=== PATIENT | female | born 2000 | race Caucasian/White ===

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

== ENCOUNTER 2021-04-05 10:49 | Emergency (ER) | payer BC, SELFPAY ==
[2021-04-05] VITALS (15 sets, daily range): BP systolic 116–140; BP diastolic 69–94; PULSE 67–99; RESP 14–24; TEMP 36.6; O2SAT 99–100
--- NOTE | 2021-04-05 11:06 | W.ED.GENAD ---
Discharge Plan Disposition Patient Disposition: HOME Condition: Stable Discharge Details Clinical Impression: Pruritus Primary Care Provider: Rashawn Arvizu ED Provider: Tariq Barrientos Home Meds and New Rx's Prescriptions: New prednisone 20 mg tablet 60 mg PO DAILY 4 Days Qty: 12 RF: 0 Continued sumatriptan succinate [Imitrex] 50 mg tablet 50 mg PO ONCE MDD 200mg Qty: 30 RF: 1 ketotifen fumarate [Allergy Eye (ketotifen)] 0.025 % (0.035 %) drops 1 drp ophthalmic (eye) BID RF: 0 azelastine 137 mcg (0.1 %) aerosol,spray 1 spray intranasal BID PRNRF: 0 ondansetron 4 mg tablet,disintegrating 4 mg PO Q8H PRN (Reason: nausea and vomiting) Qty: 20 RF: 1 budesonide [Rhinocort Aqua] 8.6 GM spray,non-aerosol 1 spray NS DAILY Qty: 8.6 RF: 1 ibuprofen 600 MG tablet 600 mg PO Q6H PRN Qty: 30 RF: 0 albuterol sulfate [ProAir HFA] 8.5 GM HFA aerosol inhaler 2 puff Inhalation ONCE Qty: 1 RF: 1 norgestimate-ethinyl estradiol 0.25-35 mg-mcg tablet 1 tab PO DAILY Qty: 28 RF: 5 cyclobenzaprine 5 mg tablet 5 mg PO ONCE PRN (Reason: muscle spasm) Qty: 10 RF: 0 norgestimate-ethinyl estradiol [Tri-Previfem (28)] 0.18/0.215/0.25 mg-35 mcg (28) tablet 1 tab PO DAILY Qty: 84 RF: 0 fexofenadine 180 mg tablet 90 mg PO BID RF: 0 Discharge Instructions Additional Instructions: Your exam was not consistent with a life threatening allergy response try taking benadryl as needed for itching not controlled with prednisone, follow dosing instructions on packaging if you develop difficulty breathing, diffuse rash, abdomen pain or vomit or feel more ill return to the emergency department Medical Decision Making 20 yo female comes in with chief complaint of itching of arms and legs. Just prior to arrival she was in a garden, did not feel any breaks in skin or bites but started to feel itching arms and legs. She noticed she had subjective dyspnea which improved en route by private car. No abdomen pain or vomit, no prior need for epi pen per the patient. She has no rashes on exam, normal speech and no evidence of respiratory distress with clear lung sounds on exam. She appears well systemically, given no gi symptoms, normal exam and no rash doubt anaphylaxis, suspect local irriation from a pollen, will treat with prednisone and benadryl and reassess. vitals stable, still clear lungs, no rashes or gi symptoms and feels better. Doubt anaphylaxis, will start on course of prednisone and prn benadryl and discussed return precautions to return to the ED Differential Diagnosis Differential Diagnosis: allergies, pruritus HPI General Mode of arrival: ambulatory. Date/Time Provider Initiated Documentation: 04/05/21 10:53. Limitations to Documentation: no limitations. Information obtained by: patient. History of Present Illness 20 year old F presents to the emergency department with the chief complaint of itching legs and arms, described as moderate, Patient started experiencing this hour(s) (1) and it has been other (improving). No relieving factors improve symptom(s), No exacerbating factors reported . Patient did receive the following treatments prior to arrival, none Related Data Home Medications Medication Instructions Recorded Confirmed budesonide [Rhinocort Aqua] 1 spray NS DAILY #8.6 gm 10/18/15 04/05/21 ibuprofen 600 mg PO Q6H PRN #30 tab-cap 04/16/17 12/30/20 albuterol sulfate [ProAir HFA] 2 puff INHALATION ONCE #1 inhaler 06/16/18 04/05/21 fexofenadine 90 mg PO BID 04/10/20 04/05/21 norgestimate 0.25 mg-ethinyl 1 tab PO DAILY #28 tab 07/20/20 04/05/21 estradiol 35 mcg tablet azelastine 137 mcg (0.1 %) nasal 1 spray INTRANASAL BID PRN 08/25/20 04/05/21 spray aerosol ketotifen fumarate 0.025 % (0.035 1 drp OPHTHALMIC (EYE) BID 08/25/20 04/05/21 %) eye drops ondansetron 4 mg disintegrating 4 mg PO Q8H PRN #20 tab 10/12/20 04/05/21 tablet sumatriptan succinate 50 mg tablet 50 mg PO ONCE #30 tab MDD 200mg 12/30/20 04/05/21 cyclobenzaprine 5 mg tablet 5 mg PO ONCE PRN #10 tab 01/30/21 04/05/21 norgestimate-ethinyl estradiol 1 tab PO DAILY #84 tab 03/17/21 0.18 mg/0.215mg/0.25mg-35 mcg(28)tablet prednisone 60 mg PO DAILY 4 Days #12 tab 04/05/21 Previous Rx's Medication Instructions Recorded albuterol sulfate [ProAir HFA] 2 puff INHALATION ONCE #1 inhaler 06/16/18 norgestimate 0.25 mg-ethinyl 1 tab PO DAILY #28 tab 07/20/20 estradiol 35 mcg tablet ondansetron 4 mg disintegrating 4 mg PO Q8H PRN #20 tab 10/12/20 tablet sumatriptan succinate 50 mg tablet 50 mg PO ONCE #30 tab MDD 200mg 12/30/20 cyclobenzaprine 5 mg tablet 5 mg PO ONCE PRN #10 tab 01/30/21 norgestimate-ethinyl estradiol 1 tab PO DAILY #84 tab 03/17/21 0.18 mg/0.215mg/0.25mg-35 mcg(28)tablet prednisone 60 mg PO DAILY 4 Days #12 tab 04/05/21 Allergies Allergy/AdvReac Type Severity Reaction Status Date / Time codeine AdvReac Unknown vomiting Verified 04/05/21 11:01 SEASONAL ALLERGIES Allergy Intermediate Uncoded 04/05/21 11:01 General Stated Complaint: Allergic FORTINO: 3 Review of Systems All systems reviewed & are unremarkable except as noted in HPI and below Constitutional Constitutional: Denies chills, Denies fever(s) and Denies weakness Cardiovascular Cardiovascular: Denies chest pain Respiratory Respiratory: Denies cough Gastrointestinal Gastrointestinal: Denies abdominal pain, Denies nausea and Denies vomiting Neurologic Neurologic: Denies weakness [facility] Medical History (Updated 04/05/21 @ 11:55 by Tariq Barrientos MD) Allergic rhinitis severe- environmental Asthma Chronic nonintractable headache (09/05/12) Generalized abdominal pain (11/17/12) Headache (09/05/12) Routine child health exam (01/28/12) Surgical History S/P right knee arthroscopy [facility] [place] 11/22 removed scar tissue, 'fluid sac Tonsillectomy and adenoidectomy age 6 Family History Mother Urticaria Environmental allergies Asthma Father Urticaria Alcohol abuse Essential hypertension Bipolar disorder with borderline personality disorder Mental disorder depression/anxiety Other Urticaria paternal aunts/uncles, PGF Alcohol abuse paternal aunts/uncles, PGF Personal history of malignant neoplasm PGF-melanoma Bipolar disorder MGM, PGM Heart disease PGM Mental disorder PGM- anxiety/depression Social History Smoking/Tobacco Use Status: Never Smoking risk assessment performed?: Yes Alcohol Intake: never Drug use: Never Substance use type: does not use Household members: family Pets and animals: Yes Pets and animals: cat(s) Do you feel safe at home: Yes Do you feel safe in your relationship?: Yes Exam Const General: no acute distress Orientation: alert HENMT Head: normal to inspection Ears: external ears normal General nose exam: external nose normal Mouth: moist mucous membranes Eyes General: appearance normal, both eyes and all related structures Neck Neck: normal visual inspection Resp Effort & Inspection: normal respiratory effort and able to speak in complete sentences Cardio Rate: regular rate Skin General skin exam: no rashes or lesions noted Neuro General: patient alert and patient oriented x3 Extrem General: normal to inspection Psych Mental Status: mental status grossly normal Course Vital Signs Vital signs: Vital Signs Temperature 36.6 C 04/05/21 10:57 Pulse 96 H 04/05/21 10:57 Respiratory Rate 24 04/05/21 10:57 Blood Pressure 140/94 H 04/05/21 10:57 Pulse Oximetry 99 04/05/21 10:57 Temperature 36.6 C 04/05/21 10:57 Temperature Source Skin 04/05/21 10:57 Pulse 96 H 04/05/21 10:57 Respiratory Rate 24 04/05/21 10:57 Respiratory Effort Non-Labored 04/05/21 11:04 Respiratory Pattern Normal 04/05/21 11:04 Blood Pressure 140/94 H 04/05/21 10:57 Blood Pressure Position Sitting 04/05/21 10:57 Pulse Oximetry 99 04/05/21 10:57 Oxygen Delivery Method Room Air 04/05/21 10:57 Oxygen Flow Rate 0 04/05/21 10:57 Pain Level 0 04/05/21 10:57
[2021-04-05] MEDS: predniSONE 20 MG TAB 60 MG PO (11:25)
[2021-04-05] MEDS: diphenhydrAMINE 25 MG CAP PO (11:25)
== END 2021-04-05 12:10 | disposition home or self-care (01) ==
PROVIDERS: Emergency Provider Emergency Medicine; PCP Pediatrics
DX: L29.9 Pruritus, unspecified (principal)
CPT/HCPCS: 99283; J7512

== ENCOUNTER 2023-06-11 16:58 | Emergency (ER) | payer OTHER, SELFPAY ==
[2023-06-11 17:03] VITALS: BP 127/82; PULSE 104; RESP 15; TEMP 36.5; O2SAT 100
--- NOTE | 2023-06-11 17:49 | ED.GENADUL_ITS ---
Discharge Plan Disposition Patient Disposition: Home Discharge Details Clinical Impression: Contusion of left great toe with damage to nail, initial encounter Primary Care Provider: Unknown,Unknown ED Provider: Angela Vale Home Meds and New Rx's Prescriptions: Continued sumatriptan succinate [Imitrex] 50 mg tablet 50 mg PO ONCE MDD 200mg Qty: 30 1RF Rx Instructions: May repeat after 2-4 hours as needed. 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 Keep your toes valentina taped as this is a great splinting mechanism. Feel free to put some triple antibiotic ointment on the edge of the nail where it has been bleeding. Allow the nail to grow out on its own. Take Tylenol as needed for pain. Return to ED for redness going up your foot, fever of 100.4 or above, any other concerns. Recheck with your primary care doc as needed. Discharge Data Discharge Date/Time-TO BE ENTERED AT DEPARTURE: 06/11/23 18:23 Medical Decision Making Patient's only tenderness to palpation of the distal phalanx. It is not deformed. We discussed x-raying this. I told her I did not think it would change treatment. We will had her first and second toes and valentina tape these for comfort and support. She can take Tylenol as needed for pain. She declined x-ray and was discharged home. She does have a follow-up echo in about a month. If her EF is still [address] AICD at that time. HPI General Date/Time Provider Initiated Documentation: 06/11/23 17:15 . HPI Narrative: This 23-year-old female patient presents with a chief complaint of left great toe injury. The patient was try to move a couch and accidentally kicked it by blaine miranda. She bent the edge of her toe backward. It is bleeding. Her tetanus shot is up-to-date. The patient recently was diagnosed with cardiomyopathy just prior to delivery. She is being followed by cardiology for her ejection fraction which is increased to 30. The baby is doing fine. The patient is nontoxic-appearing and has no chest pain or difficulty breathing. Related Data Home Medications Medication Instructions Recorded Confirmed albuterol sulfate 90 mcg/actuation 2 puff inhalation ONCE ##1 06/16/18 06/11/23 aerosol inhaler (ProAir HFA) fexofenadine 180 mg tablet 90 mg PO BID PRN 04/10/20 06/11/23 azelastine 137 mcg (0.1 %) nasal 1 spray intranasal BID PRN 08/25/20 06/11/23 spray aerosol sumatriptan succinate 50 mg tablet 50 mg PO ONCE #30 tabs 12/30/20 06/11/23 (Imitrex) norgestimate-ethinyl estradiol 1 tab PO DAILY #28 tabs 04/17/21 05/01/22 0.18 mg/0.215mg/0.25mg-35 mcg(28)tablet (Tri-Previfem (28)) empagliflozin 10 mg tablet 10 mg PO DAILY 06/11/23 06/11/23 (Jardiance) metoprolol succinate 200 mg 200 mg PO DAILY 06/11/23 06/11/23 tablet,extended release 24 hr sacubitril 49 mg-valsartan 51 mg 1 tab PO BID 06/11/23 06/11/23 tablet (Entresto) spironolactone 25 mg tablet 25 mg PO DAILY 06/11/23 06/11/23 torsemide 20 mg tablet 20 mg PO BID 08/08/23 08/08/23 Previous Rx's Medication Instructions Recorded albuterol sulfate 90 mcg/actuation 2 puff inhalation ONCE ##1 06/16/18 aerosol inhaler (ProAir HFA) sumatriptan succinate 50 mg tablet 50 mg PO ONCE #30 tabs 12/30/20 (Imitrex) norgestimate-ethinyl estradiol 1 tab PO DAILY #28 tabs 04/17/21 0.18 mg/0.215mg/0.25mg-35 mcg(28)tablet (Tri-Previfem (28)) Allergies Allergy/AdvReac Type Severity Reaction Status Date / Time codeine AdvReac Unknown vomiting Verified 06/11/23 17:06 SEASONAL ALLERGIES Allergy Intermediate Uncoded 06/11/23 17:06 General Stated Complaint: Orthopedic FORTINO: 4 Review of Systems Cardiovascular Cardiovascular: Denies chest pain and Denies dyspnea Respiratory Respiratory: Denies dyspnea Musculoskeletal Musculoskeletal: Reports other (Stubbed left great toe which is bleeding) PFSH All Active Problems (Updated 06/11/23 @ 18:00 by Angela Vale MD) Contusion of left great toe with damage to nail, initial encounter (Acute) (Acute) in 3rd trimester Pruritus (Acute) Acanthosis nigricans (Acute) Allergic rhinitis, cause unspecified (Acute 01/12/13) Mild intermittent asthma, uncomplicated (Acute 03/06/16) Migraine headache (Acute 03/06/16) Well adolescent visit (Acute 03/12/17) Medical History (Updated 06/11/23 @ 18:00 by Angela Vale MD) Allergic rhinitis severe- environmental Asthma Chronic nonintractable headache (09/05/12) Generalized abdominal pain (11/17/12) Headache (09/05/12) Routine child health exam (01/28/12) Surgical History S/P right knee arthroscopy [facility] [place] 11/22 removed scar tissue, 'fluid sac Tonsillectomy and adenoidectomy age 6 Family History Mother Urticaria Environmental allergies Asthma Father Urticaria Alcohol abuse Essential hypertension Bipolar disorder with borderline personality disorder Mental disorder depression/anxiety Other Urticaria paternal aunts/uncles, PGF Alcohol abuse paternal aunts/uncles, PGF Personal history of malignant neoplasm PGF-melanoma Bipolar disorder MGM, PGM Heart disease PGM Mental disorder PGM- anxiety/depression Social History Smoking/Tobacco Use Status: Never Smoking risk assessment performed?: Yes Alcohol Intake: never Drug use: Never Substance use type: does not use Household members: family Pets and animals: Yes Pets and animals: cat(s) Do you feel safe at home: Yes Do you feel safe in your relationship?: Yes Exam Const General: no acute distress, well developed and well groomed Nutritional Appearance: well nourished Orientation: alert and oriented x3 HENMT Head: normocephalic and atraumatic Mouth: lip normal Eyes Conjunctivae: conjunctivae normal Neck Neck: supple Resp Effort & Inspection: normal respiratory effort Extrem General: other (L great toe w/intact nail, edge bent, SA bleeding tip, TTP, no subung hemat) Course Vital Signs Vital signs: Vital Signs Temperature 36.5 C 06/11/23 17:03 Pulse 104 H 06/11/23 17:03 Respiratory Rate 15 06/11/23 17:03 Blood Pressure 127/82 06/11/23 17:03 Pulse Oximetry 100 06/11/23 17:03 Temperature 36.5 C 06/11/23 17:03 Temperature Source Oral 06/11/23 17:03 Pulse 104 H 06/11/23 17:03 Respiratory Rate 15 06/11/23 17:03 Respiratory Effort Normal 06/11/23 17:05 Blood Pressure 127/82 06/11/23 17:03 Blood Pressure Position Sitting 06/11/23 17:03 Pulse Oximetry 100 06/11/23 17:03 Oxygen Delivery Method Room Air 06/11/23 17:03 Oxygen Flow Rate 0 06/11/23 17:03 Pain Level 7 06/11/23 17:05
== END 2023-06-11 18:23 | disposition home or self-care (01) ==
PROVIDERS: Emergency Provider Emergency Medicine
DX: S90.211A Contusion of right great toe with damage to nail, initial encounter (principal); W22.03XA Walked into furniture, initial encounter; Y93.89 Activity, other specified; Y92.018 Other place in single-family (private) house as the place of occurrence of the external cause; Y99.9 Unspecified external cause status
CPT/HCPCS: 99282

== ENCOUNTER 2024-01-15 20:55 | Emergency (ER) | payer BC, MEDICAID, SELFPAY ==
[2024-01-15] VITALS (57 sets, daily range): BP systolic 146; BP diastolic 85; PULSE 92–109; RESP 16; TEMP 36.1; O2SAT 96–100
--- NOTE | 2024-01-15 20:45 | RT.EKG_ITS ---
APPROVED REPORT Exam: Resting ECG Reason for Exam: chest pain Patient Location: E HR:99 bpm ECG Measurements Heart Rate 99 AXIS AR 162 P 7 QRSd 108 QRS 2 QT 361 T -5 QTc 465 Conclusion Sinus rhythm...normal P axis, V-rate 60- 99 Probable left ventricular hypertrophy...(RaVL+SV3)xQRSd >300 Normal sinus rhythm at a rate of 99 with interventricular conduction delay and a QRS of 108 ms. AR a nd QTc within normal limits. Left axis deviation. ST segment depressions V3 and V4. LVH based on v oltage criteria in aVL. No acute injury pattern. No prior for comparison.
--- NOTE | 2024-01-15 21:13 | W.ED.GENAD ---
Discharge Plan Disposition Patient Disposition: Home Condition: Stable Discharge Details Clinical Impression: Chest pain Primary Care Provider: Chen Chapa ED Provider: Catia Haynes Home Meds and New Rx's Prescriptions: Continued sumatriptan succinate [Imitrex] 50 mg tablet 50 mg PO ONCE MDD 200mg Qty: 30 1RF Rx Instructions: May repeat after 2-4 hours as needed. 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 Follow up with primary care provider in 3-5 days. Return to ED sooner if any worsening or concerns. Increase oral fluids. PLease follow up with your mysql dba to discuss further eval and testing if needed. Stand Alone Forms: Work Release Referrals: Chen Chapa [Primary Care Provider] - 3 days HPI General Mode of arrival: ambulatory. Date/Time Provider Initiated Documentation: 01/15/24 21:04. Limitations to Documentation: no limitations. Information obtained by: patient, RN notes reviewed and old records reviewed. HPI Narrative: 23-year-old female with past medical history of cardiomyopathy with AICD implant presents to the ER with chief complaint of chest pain which began around 6 PM associated with shortness of breath syncope radiation of the pain to her arm and neck. She reports that she was at work when this occurred and had a tachycardia up to 140. She does see cardiology at [facility]. Denies any nausea vomiting or any other associated symptoms. She does take metoprolol and torsemide on a regular basis. Other past medical history includes obesity, she denies any drugs or alcohol denies smoking however she is around secondhand smoke with her job. Related Data Home Medications Medication Instructions Recorded Confirmed albuterol sulfate 90 mcg/actuation 2 puff inhalation ONCE ##1 06/16/18 01/15/24 aerosol inhaler (ProAir HFA) azelastine 137 mcg (0.1 %) nasal 1 spray intranasal BID PRN 08/25/20 01/15/24 spray aerosol sumatriptan succinate 50 mg tablet 50 mg PO ONCE #30 tabs 12/30/20 01/15/24 (Imitrex) norgestimate-ethinyl estradiol 1 tab PO DAILY #28 tabs 04/17/21 01/15/24 0.18 mg/0.215mg/0.25mg-35 mcg(28)tablet (Tri-Previfem (28)) empagliflozin 10 mg tablet 10 mg PO DAILY 06/11/23 01/15/24 (Jardiance) metoprolol succinate 200 mg 200 mg PO DAILY 06/11/23 01/15/24 tablet,extended release 24 hr sacubitril 49 mg-valsartan 51 mg 1 tab PO BID 06/11/23 01/15/24 tablet (Entresto) spironolactone 25 mg tablet 25 mg PO DAILY 06/11/23 01/15/24 torsemide 20 mg tablet 20 mg PO BID 06/11/23 01/15/24 Previous Rx's Medication Instructions Recorded albuterol sulfate 90 mcg/actuation 2 puff inhalation ONCE ##1 06/16/18 aerosol inhaler (ProAir HFA) sumatriptan succinate 50 mg tablet 50 mg PO ONCE #30 tabs 12/30/20 (Imitrex) norgestimate-ethinyl estradiol 1 tab PO DAILY #28 tabs 04/17/21 0.18 mg/0.215mg/0.25mg-35 mcg(28)tablet (Tri-Previfem (28)) Allergies Allergy/AdvReac Type Severity Reaction Status Date / Time codeine AdvReac Unknown vomiting Verified 01/15/24 21:00 SEASONAL ALLERGIES Allergy Intermediate Topical Uncoded 01/15/24 21:00 Irritation General Stated Complaint: Chest Pain FORTINO: 2 Review of Systems All systems reviewed & are unremarkable except as noted in HPI and below Cardiovascular Cardiovascular: Reports chest pain, Reports rapid heart rate, Denies leg edema and Reports dyspnea Respiratory Respiratory: Reports dyspnea Exam Narrative Exam Narrative: Constitutional: Alert and oriented x3. Appears stated age. Obese body habitus. Head: Normocephalic, no trauma. Eyes: Pupils PERRL, Red reflex noted, EOM's intact. Eyelids symmetrical without lesions, discharge, or swelling. ENT: Bilateral TM's WNL, External ear normal to inspection, no mastoid TTP, swelling, or erythema, Nasal turbinates WNL, no nasal discharge. Normal dentition, Posterior pharynx WNL, no exudate. Chest: RRR, Normal S1, S2, distal pulses intact. Resp: Lungs clear to auscultation bilaterally, no wheezes, rales, or rhonchi. Abdomen: Soft, non-distended, Normoactive bowel sounds all 4 quads. Musculoskeletal: Normal gait, 5/5 strength to all four extremities. Skin: No suspicious rashes or lesions. Capillary refill less than 2 sec. Neurologic: Cranial nerves II-XII intact. Alert and oriented x 3. Motor: No deficits noted. Sensory: Intact bilaterally all 4 extremities. Reflexes: DTR's intact bilaterally.. Hematologic/Lymphatic: No ecchymosis, no lymphadenopathy. Course Vital Signs Vital signs: Vital Signs Temperature 36.1 C L 01/15/24 21:03 Pulse 109 H 01/15/24 21:03 Respiratory Rate 16 01/15/24 21:03 Blood Pressure 146/85 H 01/15/24 21:03 Pulse Oximetry 100 01/15/24 21:03 Temperature 36.1 C L 01/15/24 21:03 Temperature Source Temporal Artery Scan 01/15/24 21:03 Pulse 109 H 01/15/24 21:03 Respiratory Rate 16 01/15/24 21:03 Respiratory Effort Short of Breath 01/15/24 21:07 Blood Pressure 146/85 H 01/15/24 21:03 Blood Pressure Position Sitting 01/15/24 21:03 Pulse Oximetry 100 01/15/24 21:03 Oxygen Delivery Method Room Air 01/15/24 21:03 Oxygen Flow Rate 0 01/15/24 21:03 Pain Level 10 01/15/24 21:03 Medical Decision Making 23-year-old female with past medical history of cardiomyopathy with AICD implant presents to the ER with chief complaint of chest pain which began around 6 PM associated with shortness of breath syncope radiation of the pain to her arm and neck. She reports that she was at work when this occurred and had a tachycardia up to 140. She does see cardiology at [facility]. Denies any nausea vomiting or any other associated symptoms. She does take metoprolol and torsemide on a regular basis. Other past medical history includes obesity, she denies any drugs or alcohol denies smoking however she is around secondhand smoke with her job. Labs show slight leukocytosis white blood cells 15.85, D-dimer slightly elevated at 692, proBNP 347, CT chest ordered. No PE. Medical Records Medical records reviewed: Yes I reviewed the patient's medical records. Imaging Data Radiologic Study: Imaging: CT Scan Radiologist's impression: COMPARISON: CR XR CHEST 2V PA LATERAL 01/15/2024 9:45 PM FINDINGS: Tubes, catheters and devices: Stimulator device within the lateral left chest wall soft tissues with single lead terminating overlying the sternum, right of midline. Pulmonary arteries: Pulmonary artery opacification is borderline. No hypoattenuating pulmonary artery filling defect. Aorta: No thoracic aortic aneurysm or obvious evidence of dissection. Thyroid: No mass. Lungs: No pulmonary consolidation. No mass. Pleural spaces: No pneumothorax. No pleural effusion. Heart: Heart is not enlarged. No pericardial effusion. Lymph nodes: No pathologically enlarged axillary, mediastinal, or hilar lymph nodes. Liver: Hepatic steatosis. Bones/joints: Unremarkable. No acute fracture. ELTON ROSALES Preliminary Radiology Report ELECTRICAL ENGINEERING MANAGER (QA) DISCREPANCY? If there is a discrepancy between the preliminary and final interpretation, please notify [facility] via [email or web address]. If you do not have access to our QA portal, call our QA team at [phone] CONFIDENTIALITY STATEMENT This report is intended only for the use of the referring physician, and only in accordance with law, If you received this in error, call [phone] Page 2 of 2 Soft tissues: No focal abnormality. IMPRESSION: 1. No evidence of pulmonary embolism. 2. Hepatic steatosis. Thank you for allowing us to participate in the care of your patient. Dictated and Authenticated by: Niles Perez MD Lab Data Lab results reviewed: Yes I reviewed the patient's lab results. Labs: Laboratory Tests Range/Units 01/15/24 01/15/24 01/15/24 21:10 21:10 21:29 WBC (4.4-10.8) 10^3/uL 15.85 H RBC (3.93-5.22) 10^6/uL 5.09 Hgb (11.2-15.7) g/dL 15.7 Hct (36.0-46.0) % 45.7 MCV (80-95) fL 90 MCH (27.0-33.0) pg 30.8 MCHC (32.0-36.0) % 34.4 RDW (11.7-14.6) % 12.4 Plt Count (130-400) 10^3/uL 413 H MPV (8.0-11.0) fL 9.7 Immature Gran % 0.4 Neutrophils % 58.6 Lymphocytes % 32.8 Monocytes % 6.6 Eosinophils % 0.8 Basophils % 0.8 Nucleated RBC % (0.0-0.3) % 0.0 Absolute Neutrophils (1.2-6.7) 10^3/uL 9.29 H Absolute Lymphocytes (1.2-3.4) 10^3/uL 5.20 H Absolute Monocytes (0.1-0.8) 10^3/uL 1.05 H Absolute Eosinophils (0.0-0.7) 10^3/uL 0.13 Absolute Basophils (0.0-0.2) 10^3/uL 0.13 RBC Morphology Normal D-Dimer (<500) ng/mlFEU 692 H Sodium (136-145) mmol/L 140 Potassium (3.5-5.1) mmol/L 3.7 Chloride (98-107) mmol/L 100 Carbon Dioxide (21.0-32.0) mmol/L 28.0 Anion Gap (3-11) mmol/L 12.0 H BUN (7-18) mg/dL 13 Creatinine (0.55-1.02) mg/dL 1.0 Est GFR (CKD-EPI 2020) (mL/min/1.73m2) 81.69 Glucose (74-106) mg/dL 102 Calcium (8.5-10.1) mg/dL 9.1 Magnesium (1.8-2.4) mg/dL 1.9 Total Bilirubin (0.2-1.0) mg/dL 0.4 AST (15-37) U/L 28 ALT (14-59) U/L 53 Alkaline Phosphatase (46-116) U/L 121 H Troponin I (< or =60) ng/L < 50 NT-Pro-B Natriuret Pep (<300) pg/mL 347 H Cancelled Total Protein (6.4-8.2) g/dL 8.4 H Albumin (3.4-5.0) g/dL 4.0 Quality:SDOH Health Related Social Needs: No Data to Display PFSH All Active Problems (Updated 01/15/24 @ 23:40 by Catia Haynes NP) Chest pain (Acute) (Acute) in 3rd trimester Pruritus (Acute) Acanthosis nigricans (Acute) Allergic rhinitis, cause unspecified (Acute 01/12/13) Mild intermittent asthma, uncomplicated (Acute 03/06/16) Migraine headache (Acute 03/06/16) Well adolescent visit (Acute 03/12/17) Medical History (Updated 01/15/24 @ 23:40 by Catia Haynes NP) Chronic nonintractable headache (09/05/12) Generalized abdominal pain (11/17/12) Headache (09/05/12) Routine child health exam (01/28/12) Asthma Allergic rhinitis severe- environmental Surgical History S/P right knee arthroscopy [facility] [place] 11/22 removed scar tissue, 'fluid sac Tonsillectomy and adenoidectomy age 6 Family History Mother Urticaria Environmental allergies Asthma Father Urticaria Alcohol abuse Essential hypertension Bipolar disorder with borderline personality disorder Mental disorder depression/anxiety Other Urticaria paternal aunts/uncles, PGF Alcohol abuse paternal aunts/uncles, PGF Personal history of malignant neoplasm PGF-melanoma Bipolar disorder MGM, PGM Heart disease PGM Mental disorder PGM- anxiety/depression Social History Smoking/Tobacco Use Status: Never Smoking risk assessment performed?: Yes Alcohol Intake: never Drug use: Never Substance use type: does not use Household members: family Housing: house Pets and animals: Yes Pets and animals: cat(s) Do you feel safe at home: Yes Do you feel safe in your relationship?: Yes
--- NOTE | 2024-01-15 21:15 | DI.RAD_ITS ---
Exam(s) XR CHEST 2V PA LATERAL EXAM: XR CHEST 2V PA LATERAL CLINICAL HISTORY: Chest pain. TECHNIQUE: 2D digital imaging was performed. COMPARISON: CR CHEST 2 VIEWS PA,LAT from 04/13/2018 FINDINGS: 2 views: There is now a stimulator device in the lateral chest wall with single lead terminating over the medi astinum slightly to the right of the midline. Heart size is upper normal. The mediastinum is not widened. Lungs are clear. No infiltrates nor pleural effusions. IMPRESSION: No acute pulmonary findings. DATA REPOSITORY: RADIATION DOSE DELIVERED:
[2024-01-15 21:19] LABS: Abs Immature Grans 0.06 10^3/uL (0.0-0.06); Absolute Eosinophil Count 0.13 10^3/uL (0.0-0.7); Absolute Monocyte Count 1.05 10^3/uL (0.1-0.8); Absolute Neutrophil Count 9.29 10^3/uL (1.2-6.7); Basophils % 0.8; Eosinophils % 0.8; HCT 45.7 % (36.0-46.0); HGB 15.7 g/dL (11.2-15.7); Immature Grans % 0.4; Lymphocytes % 32.8; MCH 30.8 pg (27.0-33.0); MCHC 34.4 % (32.0-36.0); MCV 90 fL (80-95); MPV 9.7 fL (8.0-11.0); Monocytes % 6.6; Neutrophils % 58.6; Platelet Count 413 10^3/uL (130-400); RBC 5.09 10^6/uL (3.93-5.22); RDW 12.4 % (11.7-14.6); WBC 15.85 10^3/uL (4.4-10.8)
[2024-01-15 21:29] LABS: Absolute Basophil Count 0.13 10^3/uL (0.0-0.2)
[2024-01-15 21:43] LABS: ALT 53 U/L (14-59); AST 28 U/L (15-37); Alkaline Phosphatase 121 U/L (46-116); BUN 13 mg/dL (7-18); Bilirubin, Total 0.4 mg/dL (0.2-1.0); Calcium 9.1 mg/dL (8.5-10.1); Chloride 100 mmol/L (98-107); Estimated GFR 81.69 (mL/min/1.73m2); Glucose 102 mg/dL (74-106); Magnesium 1.9 mg/dL (1.8-2.4); NT-proBNP 347 pg/mL (<300); Potassium 3.7 mmol/L (3.5-5.1); Sodium 140 mmol/L (136-145); Total Protein 8.4 g/dL (6.4-8.2); Troponin I < 50 ng/L (< or =60)
[2024-01-15 21:47] LABS: Diff Comment Diff Reviewed; RBC Morphology Normal
[2024-01-15 22:04] LABS: D-Dimer 692 ng/mlFEU (<500)
--- NOTE | 2024-01-15 22:11 | DI.CT_ITS ---
Exam(s) CT CHEST PE CTA EXAM: CT CHEST PE CTA CLINICAL HISTORY: Chest Pain. TECHNIQUE: Imaging Protocol: CT angiography of the chest was performed using pulmonary embolus debby col. Multi planar reconstructions were performed. CONTRAST MATERIAL: Intravenous: Omnipaque 350 Contrast volume: 100 cc COMPARISON: No exams were available for comparison FINDINGS: CHEST: PULMONARY ARTERIES: There is less than optimal opacification of the distal pulmonary arterial tree. There are no obvious intraluminal filling defects to suggest acute pulmonary emboli. LUNGS: There are no infiltrates nor evidence of pulmonary infarction.. There are no pleural effusions . MEDIASTINUM: There is no hilar nor mediastinal adenopathy. Visualized thyroid unremarkable. CARDIAC: Heart size is upper normal. There is no pericardial effusion.Caliber of the thoracic aorta is within normal limits. No evidence of dissection. There is no significant shift of the interventri cular septum. PARTIALLY VISUALIZED UPPERMOST ABDOMEN: Hepatic steatosis noted. No adrenal masses evident. OSSEOUS: No significant osseous lesions.. IMPRESSION: 1. No evidence of obvious acute pulmonary emboli. No evidence of pulmonary infarction.No pleural eff usions. 2. No evidence of aortic dissection nor pericardial effusion. 3. There is a stimulator device in the subcutaneous lateral chest wall. It exhibits a single lead ex tending anteriorly over the right-side of the sternum. RADIATION DOSE DELIVERED: Total DLP DATA REPOSITORY: All CT scans at this facility are submitted to the National Radiology Data Registry (NRDR) Dose Index Registry (DIR) with the [employer] (A[employer]). RADIATION OPTIMIZATION: All CT scans at this facility use at least one of these dose optimization te chniques: automated exposure control; mA and/or kV adjustment per patient size (includes targeted exa ms where dose is matched to clinical indication); or iterative reconstruction.
--- NOTE | 2024-01-15 22:22 | DI.VRAD_ITS ---
PROCEDURE INFORMATION: Exam: XR Chest Exam date and time: 01/15/2024 9:45 PM Age: 23 years old Clinical indication: Pain; Chest pressure; Additional info: Chest pain TECHNIQUE: Imaging protocol: Radiologic exam of the chest. Views: 2 views. COMPARISON: CR CHEST 2 VIEWS PA,LAT 04/13/2018 7:50 PM FINDINGS: Tubes, catheters and devices: Stimulator device within the lateral left chest wall soft tissues with single lead terminating over the mediastinum, right of midline. Lungs: Lungs are adequately inflated. No focal consolidation or evidence of pulmonary edema. Pleural spaces: No pleural effusion. No pneumothorax. Heart/Mediastinum: Cardiomediastinal contours within normal limits. Diaphragm: Asymmetric elevation of right hemidiaphragm similar to prior. Bones/joints: No acute osseous finding. IMPRESSION: No acute findings. Dictated and Authenticated by: Niles Perez MD. Ordering:FABY Bardales MD
[2024-01-15] MEDS: Normal Saline - Diluent 50 ML VIAL IJ (22:31)
[2024-01-15] MEDS: Omnipaque 350 MG/ML 100 ML BTL IJ (22:32)
--- NOTE | 2024-01-15 23:30 | DI.VRAD_ITS ---
PROCEDURE INFORMATION: Exam: CTA Chest With Contrast Exam date and time: 01/15/2024 10:31 PM Age: 23 years old Clinical indication: Other: Chest pain TECHNIQUE: Imaging protocol: Computed tomographic angiography of the chest with contrast. Exam focused on the arteries. 3D rendering (Not supervised by radiologist): MIP and/or 3D reconstructed images were created by the technologist. Contrast material: 350; Contrast volume: 100 ml; Contrast route: INTRAVENOUS (IV); COMPARISON: CR XR CHEST 2V PA LATERAL 01/15/2024 9:45 PM FINDINGS: Tubes, catheters and devices: Stimulator device within the lateral left chest wall soft tissues with single lead terminating overlying the sternum, right of midline. Pulmonary arteries: Pulmonary artery opacification is borderline. No hypoattenuating pulmonary artery filling defect. Aorta: No thoracic aortic aneurysm or obvious evidence of dissection. Thyroid: No mass. Lungs: No pulmonary consolidation. No mass. Pleural spaces: No pneumothorax. No pleural effusion. Heart: Heart is not enlarged. No pericardial effusion. Lymph nodes: No pathologically enlarged axillary, mediastinal, or hilar lymph nodes. Liver: Hepatic steatosis. Bones/joints: Unremarkable. No acute fracture. Soft tissues: No focal abnormality. IMPRESSION: 1. No evidence of pulmonary embolism. 2. Hepatic steatosis. Dictated and Authenticated by: Niles Perez MD. Ordering:FABY Bardales MD
[2024-01-16] VITALS: BP 145/67; PULSE 92; O2SAT 99
== END 2024-01-16 00:04 | disposition home or self-care (01) ==
PROVIDERS: Emergency Provider Registered Nurse Emergency; PCP Family Medicine
DX: R07.9 Chest pain, unspecified (principal); R06.02 Shortness of breath; I42.9 Cardiomyopathy, unspecified; Z95.810 Presence of automatic (implantable) cardiac defibrillator
CPT/HCPCS: 36415; 71275; 80053; 93005; 99285; 71046; 83735; 83880; 84484; 85025; 85379; 93010; 99284; J3490

== ENCOUNTER 2024-05-25 19:04 | Emergency (ER) | payer MEDICAID, SELFPAY ==
[2024-05-25 19:40] VITALS: BP 135/82; PULSE 97; RESP 16; TEMP 36.8; O2SAT 98
== END 2024-05-25 20:51 | disposition left against medical advice (07) ==
LOC: ER 19:36
PROVIDERS: PCP Family Medicine
DX: Z53.21 Procedure and treatment not carried out due to patient leaving prior to being seen by health care provider (principal)

== ENCOUNTER 2025-01-17 14:14 | Emergency (ER) | payer MEDICAID, SELFPAY ==
[2025-01-17] VITALS (13 sets, daily range): BP systolic 100–115; BP diastolic 47–80; PULSE 72–102; RESP 10–20; TEMP 36.8; O2SAT 96–100
--- NOTE | 2025-01-17 14:15 | RT.EKG_ITS ---
APPROVED REPORT Exam: Resting ECG Reason for Exam: Dizzy Patient Location: E HR:81 bpm ECG Measurements Heart Rate 81 AXIS UT 168 P -8 QRSd 115 QRS 0 QT 379 T 0 QTc 441 Conclusion Sinus rhythm...normal P axis, V-rate 60- 99 Probable left ventricular hypertrophy...(RaVL+SV3)xQRSd >300
--- NOTE | 2025-01-17 14:27 | W.ED.GENAD ---
Discharge Plan Disposition Patient Disposition: Home Condition: Stable Discharge Details Clinical Impression: Nausea, Dizziness Primary Care Provider: Chen Chapa ED Provider: Tariq Barrientos Home Meds and New Rx's Prescriptions: New ondansetron 4 mg tablet,disintegrating 4 mg PO Q8H PRN (Reason: nausea and vomiting) Qty: 30 0RF Continued sumatriptan succinate [Imitrex] 50 mg tablet 50 mg PO ONCE MDD 200mg Qty: 30 1RF Rx Instructions: May repeat after 2-4 hours as needed. azelastine 137 mcg (0.1 %) aerosol,spray 1 spray intranasal BID PRN Patient Comments: Rx'd by atomic process engineer Rx Instructions: administer into each nostril albuterol sulfate [ProAir HFA] 8.5 GM HFA aerosol inhaler 2 puff Inhalation ONCE Qty: 1 1RF torsemide 20 mg tablet 20 mg PO BID metoprolol succinate 200 mg tablet extended release 24 hr 200 mg PO DAILY spironolactone 25 mg tablet 25 mg PO DAILY Jardiance 10 mg tablet 10 mg PO DAILY sacubitril-valsartan [Entresto] 97-103 mg tablet 1 tab PO BID Discharge Instructions Additional Instructions: Your labs and x-ray did not show any concerning findings at this time. If your symptoms continue this week follow-up with either your primary care provider or wastewater analyst lab analyst. If you feel significantly more ill or have new symptoms such as severe chest pain return to the emergency department for reevaluation Stand Alone Forms: Work Release HPI General Date/Time Provider Initiated Documentation: 01/17/25 14:15. Limitations to Documentation: no limitations. Information obtained by: patient. History of Present Illness 24 year old F presents to the emergency department with the chief complaint of lightheaded, described as moderate, Patient started experiencing this hour(s) (1) and it has been other (improving). No relieving factors improve symptom(s), No exacerbating factors reported . Patient notes denies chest pain and fever/chills. Patient did receive the following treatments prior to arrival, none Related Data Home Medications ?Medication ?Instructions ?Recorded ?Confirmed albuterol sulfate 90 mcg/actuation 2 puff inhalation ONCE ##1 06/16/18 01/17/25 aerosol inhaler (ProAir HFA) azelastine 137 mcg (0.1 %) nasal 1 spray intranasal BID PRN 08/25/20 01/17/25 spray sumatriptan succinate 50 mg tablet 50 mg PO ONCE #30 tabs 12/30/20 01/17/25 (Imitrex) empagliflozin 10 mg tablet 10 mg PO DAILY 06/11/23 01/17/25 (Jardiance) metoprolol succinate 200 mg 200 mg PO DAILY 06/11/23 01/17/25 tablet,extended release 24 hr spironolactone 25 mg tablet 25 mg PO DAILY 06/11/23 01/17/25 torsemide 20 mg tablet 20 mg PO BID 06/11/23 01/17/25 ondansetron 4 mg disintegrating 4 mg PO Q8H PRN nausea and 01/17/25 tablet vomiting #30 tabs sacubitril 97 mg-valsartan 103 mg 1 tab PO BID 01/17/25 01/17/25 tablet (Entresto) Previous Rx's ?Medication ?Instructions ?Recorded albuterol sulfate 90 mcg/actuation 2 puff inhalation ONCE ##1 06/16/18 aerosol inhaler (ProAir HFA) sumatriptan succinate 50 mg tablet 50 mg PO ONCE #30 tabs 12/30/20 (Imitrex) ondansetron 4 mg disintegrating 4 mg PO Q8H PRN nausea and 01/17/25 tablet vomiting #30 tabs Allergies Allergy/AdvReac Type Severity Reaction Status Date / Time codeine AdvReac Unknown vomiting Verified 01/17/25 14:27 SEASONAL ALLERGIES Allergy Intermediate Topical Uncoded 01/17/25 14:27 Irritation General Stated Complaint: Dizzy/Sync FORTINO: 3 Review of Systems All systems reviewed & are unremarkable except as noted in HPI and below Constitutional Constitutional: Denies chills, Denies fever(s) and Denies weakness Cardiovascular Cardiovascular: Denies chest pain and Reports other (lightheaded) Respiratory Respiratory: Denies cough Gastrointestinal Gastrointestinal: Denies vomiting Neurologic Neurologic: Denies weakness Psychiatric Psychiatric: Denies depression Exam Const General: no acute distress Orientation: alert [facility] Head: normal to inspection Ears: external ears normal General nose exam: external nose normal Mouth: moist mucous membranes Eyes General: appearance normal, both eyes and all related structures Neck Neck: normal visual inspection Resp Effort & Inspection: normal respiratory effort and able to speak in complete sentences Auscultation: clear to auscultation bilaterally Cardio Jugular venous pressure: no JVD Rate: regular rate Heart Sounds: no murmurs Skin General skin exam: no rashes or lesions noted Neuro General: patient alert and patient oriented x3 Extrem General: normal to inspection Psych Mental Status: mental status grossly normal Course Vital Signs Vital signs: Vital Signs Temperature 36.8 C 01/17/25 14:19 Pulse 102 H 01/17/25 14:19 Respiratory Rate 20 01/17/25 14:19 Blood Pressure 103/72 01/17/25 14:19 Pulse Oximetry 98 01/17/25 14:19 Temperature 36.8 C 01/17/25 14:19 Pulse 102 H 01/17/25 14:19 Respiratory Rate 20 01/17/25 14:19 Blood Pressure 103/72 01/17/25 14:19 Pulse Oximetry 98 01/17/25 14:19 Oxygen Delivery Method Room Air 01/17/25 14:19 Oxygen Flow Rate 0 01/17/25 14:19 Medical Decision Making 24-year-old female with a history of cardiomyopathy and had an AICD placed in November 27 comes in after she was working on the inpatient floor when she was sitting and stood up and felt lightheaded. She did not lose consciousness, she has any fevers or severe chest pain. She is stable on arrival. She has no JVD on exam. She is alert and I do x 4 speaking in full sentences. She has mildly diminished EF on bedside ultrasound with no pericardial effusion. She says her normal EF is around 29%. Given her history we will check a CBC and CMP along with troponins. Will also obtain a chest x-ray. No tearing back pain so I doubt dissection. Will send a D-dimer to screen for PE. Labs and x-ray showed no acute findings. Patient is stable and has not no arrhythmias on the monitor. Given reassuring workup I feel she is stable for discharge. Advised to follow-up with her PCP or wastewater analyst lab analyst. Return precautions given Differential Diagnosis Differential Diagnosis: anemia, orthostasis, nstemi Medical Records Medical records reviewed: Yes I reviewed the patient's medical records. Lab Data Lab results reviewed: Yes I reviewed the patient's lab results. ECG Data Attestation: I personally reviewed and interpreted this ECG (s) as follows: Prior ECG tracings: available for review Interpretation: sinus rate of 81 no stemi Quality:SDOH Health Related Social Needs: No Data to Display PFSH All Active Problems (Updated 01/17/25 @ 16:57 by Tariq Barrientos MD) Dizziness (Acute) Nausea (Acute) (Acute) in 3rd trimester Pruritus (Acute) Acanthosis nigricans (Acute) Allergic rhinitis, cause unspecified (Acute 01/12/13) Mild intermittent asthma, uncomplicated (Acute 03/06/16) Migraine headache (Acute 03/06/16) Well adolescent visit (Acute 03/12/17) Medical History (Updated 01/17/25 @ 16:57 by Tariq Barrientos MD) Chronic nonintractable headache (09/05/12) Generalized abdominal pain (11/17/12) Headache (09/05/12) Routine child health exam (01/28/12) Asthma Allergic rhinitis severe- environmental Surgical History S/P right knee arthroscopy [facility] 11/22 removed scar tissue, 'fluid sac Tonsillectomy and adenoidectomy age 6 Family History Mother Urticaria Environmental allergies Asthma Father Urticaria Alcohol abuse Essential hypertension Bipolar disorder with borderline personality disorder Mental disorder depression/anxiety Other Urticaria paternal aunts/uncles, PGF Alcohol abuse paternal aunts/uncles, PGF Personal history of malignant neoplasm PGF-melanoma Bipolar disorder MGM, PGM Heart disease PGM Mental disorder PGM- anxiety/depression Social History Smoking/Tobacco Use Status: Never Smoking risk assessment performed?: Yes Alcohol Intake: never Drug use: Never Substance use type: does not use Household members: family Housing: house Pets and animals: Yes Pets and animals: cat(s) Do you feel safe at home: Yes Do you feel safe in your relationship?: Yes POCUS Exam (ED) Limited Cardiac Exam REASON FOR EXAM: Other indication: presyncope VISUALIZED STRUCTURES: Left ventricle PERTINENT FINDINGS/IMPRESSION: No pericardial effusion Exam complete
--- NOTE | 2025-01-17 14:30 | DI.RAD_ITS ---
Exam(s) XR PORTABLE CHEST AP EXAM: XR PORTABLE CHEST AP CLINICAL HISTORY: dizziness TECHNIQUE: 2D digital imaging was performed of the chest. One image was obtained. An AP view was ob tained. COMPARISON: CT CT CHEST PE CTA from 01/15/2024 CR,XR XR CHEST 2V PA LATERAL from 01/15/2024 FINDINGS: MEDIASTINUM: Normal. HEART: Normal. PULMONARY VASCULATURE: Normal. LUNGS: Clear. PLEURAL SPACE: No pleural effusion or pneumothorax. BONE:Within normal limits for the patient's age. OTHER FINDINGS:The right-sided device in the subcutaneous tissues in the lead are stable in position. IMPRESSION: No acute pulmonary findings. DATA REPOSITORY: RADIATION DOSE DELIVERED:
[2025-01-17 14:58] LABS: Prothrombin Time 9.9 sec (9.1-11.1)
[2025-01-17 15:00] LABS: Abs Immature Grans 0.04 10^3/uL (0.0-0.06); Absolute Eosinophil Count 0.25 10^3/uL (0.0-0.7); Absolute Lymphocyte Count 4.14 10^3/uL (1.2-3.4); Absolute Monocyte Count 0.87 10^3/uL (0.1-0.8); Basophils % 0.8 %; HCT 45.7 % (36.0-46.0); HGB 15.2 g/dL (11.2-15.7); Immature Grans % 0.3 %; Lymphocytes % 33.3 %; MCH 29.9 pg (27.0-33.0); MCHC 33.3 % (32.0-36.0); MCV 90 fL (80-95); MPV 9.8 fL (8.0-11.0); Neutrophils % 56.6 %; Platelet Count 411 10^3/uL (130-400); RBC 5.08 10^6/uL (3.93-5.22); RDW 11.9 % (11.7-14.6); RDW-SD 38.9 fL; WBC 12.42 10^3/uL (4.4-10.8)
[2025-01-17 15:02] LABS: ALT 42 U/L (14-59); AST 19 U/L (15-37); Albumin 4.3 g/dL (3.4-5.0); Alkaline Phosphatase 82 U/L (46-116); Anion Gap 7.9 mmol/L (3-11); BUN 12 mg/dL (7-18); Bilirubin, Total 0.5 mg/dL (0.2-1.0); CO2 29.1 mmol/L (21.0-32.0); CREATININE 0.9 mg/dL (0.55-1.02); Calcium 9.8 mg/dL (8.5-10.1); Chloride 102 mmol/L (98-107); Estimated GFR 92.12 (mL/min/1.73m2); Glucose 86 mg/dL (74-106); Potassium 3.7 mmol/L (3.5-5.1); Sodium 139 mmol/L (136-145); Total Protein 8.2 g/dL (6.4-8.2)
[2025-01-17 15:09] LABS: Absolute Neutrophil Count 7.03 10^3/uL (1.2-6.7)
[2025-01-17 15:11] LABS: Magnesium 2.1 mg/dL (1.8-2.4); NT-proBNP 56 pg/mL (<300)
[2025-01-17 15:14] LABS: Troponin I < 4 ng/L (<or=51)
[2025-01-17 15:16] LABS: HCG Qual (Serum) Negative
[2025-01-17 15:29] LABS: D-Dimer 470 ng/mlFEU (<500)
[2025-01-17] MEDS: Meclizine 25 MG TAB PO (16:08)
[2025-01-17] MEDS: Ondansetron 4 MG/2 ML VIAL IVP (16:08)
[2025-01-17 16:40] LABS: Troponin I < 4 ng/L (<or=51)
[2025-01-17] MEDS: Ondansetron O.D.T. 4 MG TABEF, 3 TABS/BTL PO (17:22)
== END 2025-01-17 17:19 | disposition home or self-care (01) ==
PROVIDERS: Emergency Provider Emergency Medicine; PCP Family Medicine
DX: R42 Dizziness and giddiness (principal); R11.0 Nausea; Z86.79 Personal history of other diseases of the circulatory system
CPT/HCPCS: 80053; 93005; 93308; 96374; 99284; 71045; 83735; 83880; 84484; 84703; 85025; 85379; 85610; 85730; 93010; J2405

== ENCOUNTER 2025-02-18 15:28 | Emergency (ER) | payer MEDICAID, SELFPAY ==
[2025-02-18] VITALS (19 sets, daily range): BP systolic 85–120; BP diastolic 51–77; PULSE 83–107; RESP 12–23; TEMP 37.1; O2SAT 95–99
--- NOTE | 2025-02-18 15:50 | W.ED.GENAD ---
Discharge Plan Disposition Patient Disposition: Home Discharge Details Clinical Impression: Abdominal pain Primary Care Provider: Chen Chapa ED Provider: Christina Cooper Home Meds and New Rx's Prescriptions: No Action sumatriptan succinate [Imitrex] 50 mg tablet 50 mg PO ONCE MDD 200mg Qty: 30 1RF Rx Instructions: May repeat after 2-4 hours as needed. azelastine 137 mcg (0.1 %) aerosol,spray 1 spray intranasal BID PRN Patient Comments: Rx'd by complaint analyst Rx Instructions: administer into each nostril albuterol sulfate [ProAir HFA] 8.5 GM HFA aerosol inhaler 2 puff Inhalation ONCE Qty: 1 1RF torsemide 20 mg tablet 20 mg PO BID metoprolol succinate 200 mg tablet extended release 24 hr 200 mg PO DAILY spironolactone 25 mg tablet 25 mg PO DAILY Jardiance 10 mg tablet 10 mg PO DAILY Entresto 97-103 mg tablet 1 tab PO BID ondansetron 4 mg tablet,disintegrating 4 mg PO Q8H PRN (Reason: nausea and vomiting) Qty: 30 0RF Discharge Instructions Additional Instructions: Please follow-up with your primary care tomorrow as scheduled. You also have a follow-up appointment scheduled with surgery at [facility] on the . I encourage you to keep with these appointments. Is no sign of appendicitis at this time, your CAT scan was reassuring. I recommend that you take a stool softener such as MiraLAX. Take 1 capful twice daily until you have regular soft stools. Decrease your dosing if you develop diarrhea/watery stools. Stay well-hydrated, drinking plenty of fluids throughout the day. Eat gentle foods to help prevent nausea. Return to emergency care for develop new fever/chills, severe abdominal pain, uncontrollable vomiting, or if you are very worried you need to be rechecked again immediately Referrals: Chen Chapa [Primary Care Provider] - [facility] General Date/Time Provider Initiated Documentation: 02/18/25 15:35. HPI Narrative: Corie is a 24-year-old female who presents to the emergency department for evaluation of right lower quadrant pain, chest heaviness, and shortness of breath. She began experiencing right lower quadrant pain approximately 2 weeks ago, which led to her admission from to . During this period, she received intravenous antibiotics and was subsequently discharged with a prescription for Augmentin, to be taken twice daily. Despite this treatment, she has developed new symptoms including nausea, postprandial vomiting, and persistent abdominal pain. The severity of her abdominal pain has remained consistent since her discharge, rating it between 4 and 5 on a scale of 10, a significant improvement from the initial rating of 10 upon admission. She reports no recent fevers or illnesses such as congestion, sore throat, or cough. She also reports no diarrhea, hematochezia, or unusual vaginal discharge. She has normal bowel movements, firm. She reports no unusual bloating. She reports that the pain radiates to her back, a symptom that has been present since the onset of her abdominal pain. She recalls an adverse reaction to morphine administered in the ER, which was not well-tolerated. A subsequent prescription for tramadol also proved ineffective. Since her discharge, she has been experiencing chest heaviness, reminiscent of her previous bout of pneumonia. She reports no chest pain but does experience shortness of breath upon exertion. She reports no associated dizziness or presyncope, change in pedal edema (says it has been improved from baseline recently), CP. She has no personal history of thromboembolic events, cancer history, recent surgery, oral contraceptive/hormone use, tobacco use, or known clotting disorders in her family. 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 Her EF was recorded as 27 in August 2024, and she has a scheduled appointment at the end of March 2025 for an echocardiogram. Her medication dosage was increased, and she reports feeling well overall. She is currently on Entresto, torsemide, and spironolactone. She notes that fluid overload tends to manifest as leg and hand swelling. Physical exam reassuring. +TTP RLQ, also mild RUQ tenderness; abdomen is soft, nondistended, nontender to palpation. Mild tachycardia, HR 100. MMM. I did review previous records, including [facility] [place]. Patient was hospitalized for appendicitis from 02/12/2025 to 02/14/2025, CT was notable for mildly dilated appendix with no periappendiceal inflammation or wall thickening, potentially representing early appendicitis. She was managed nonoperatively with IV antibiotics, serial abdominal exams, and discharged home with p.o. antibiotics. D/dx includes but is not limited to: worsening appendicitis or complications associated with appendicitis, viral gastroenteritis, colitis, dehydration, electrolyte imbalance, CHF, pneumonia, PE I independently interpreted the following tests: CBC reassuring, mild leukocytosis noted with WBC 11.74; thrombocytopenia unchanged from previous. D-dimer, CMP, UA reassuring. EKG reassuring, NSR rate 85, no changes c/w acute ischemia, normal intervals. CXR reassuring, no obvious infilrates. This was confirmed by radiologist. While in the ED, Corie received a small bolus of IV fluids for low BP (she reports her BP tends to be low when she is taking full dose of diuretic; usually 100 systolic). As pt was recently discharged from [facility] for treatment of appendicitis, I consulted with surgeon Dr Chacon; reviewed pt presentation, labs, and imaging. As appendix appears normal and no significant leukocytosis, not consistent with appendicitis. Unclear etiology of symptoms, however there was a large amount of stool noted; recommend stool softeners. She does have a f/u appt scheduled on 02/26. Reviewed discharge instructions with patient and her fiance, including symptomatic mgmt and red flags indicating need for return to emergency care. She voices agreement with plan of care. Note partially written using [employer]. Related Data Home Medications ?Medication ?Instructions ?Recorded ?Confirmed albuterol sulfate 90 mcg/actuation 2 puff inhalation ONCE ##1 06/16/18 02/18/25 aerosol inhaler (ProAir HFA) azelastine 137 mcg (0.1 %) nasal 1 spray intranasal BID PRN 08/25/20 02/18/25 spray sumatriptan succinate 50 mg tablet 50 mg PO ONCE #30 tabs 12/30/20 02/18/25 (Imitrex) empagliflozin 10 mg tablet 10 mg PO DAILY 06/11/23 02/18/25 (Jardiance) metoprolol succinate 200 mg 200 mg PO DAILY 06/11/23 02/18/25 tablet,extended release 24 hr spironolactone 25 mg tablet 25 mg PO DAILY 06/11/23 02/18/25 torsemide 20 mg tablet 20 mg PO BID 06/11/23 02/18/25 ondansetron 4 mg disintegrating 4 mg PO Q8H PRN nausea and 01/17/25 02/18/25 tablet vomiting #30 tabs sacubitril 97 mg-valsartan 103 mg 1 tab PO BID 01/17/25 02/18/25 tablet (Entresto) Previous Rx's ?Medication ?Instructions ?Recorded albuterol sulfate 90 mcg/actuation 2 puff inhalation ONCE ##1 06/16/18 aerosol inhaler (ProAir HFA) sumatriptan succinate 50 mg tablet 50 mg PO ONCE #30 tabs 12/30/20 (Imitrex) ondansetron 4 mg disintegrating 4 mg PO Q8H PRN nausea and 01/17/25 tablet vomiting #30 tabs Allergies Allergy/AdvReac Type Severity Reaction Status Date / Time codeine AdvReac Unknown vomiting Verified 02/18/25 15:40 SEASONAL ALLERGIES Allergy Intermediate Topical Uncoded 02/18/25 15:40 Irritation General Stated Complaint: Abd Prob FORTINO: 3 Review of Systems Narrative: see HPI Exam Narrative Exam Narrative: General Appearance: The patient appears well and in no acute distress. Vital signs: Vital signs are reassuring. Mild tachycardia noted with a heart rate of 102. HEENT: Within normal limits. Respiratory: Lungs are clear to auscultation bilaterally. The patient is able to speak in complete sentences. Cardiovascular: Heart has a regular rhythm, mild tachycardia. Normal heart sounds. Peripheral pulses intact to upper and lower extremities, brisk cap refill. Gastrointestinal: +TTP RLQ, mild tenderness to RUQ. Abdomen is soft and nondistended. No rigidity or guarding. No ecchymosis to the abdomen. Negative psoas sign. Extremities: No pedal edema in the feet. Skin: Warm and dry, no rash. Neurological: The patient is alert and oriented. Psychiatric: Normal. Course Vital Signs Vital signs: Vital Signs Temperature 37.1 C 02/18/25 15:35 Pulse 102 H 02/18/25 15:35 Respiratory Rate 15 02/18/25 15:35 Blood Pressure 120/77 02/18/25 15:35 Pulse Oximetry 98 02/18/25 15:35 Temperature 37.1 C 02/18/25 15:39 Pulse 102 H 02/18/25 15:39 Respiratory Rate 15 02/18/25 15:39 Blood Pressure 120/77 02/18/25 15:39 Pulse Oximetry 98 02/18/25 15:39 Pain Level 5 02/18/25 15:39 Medical Decision Making Imaging Data Radiologic Study: Radiologist's impression: Exam(s) XR CHEST 2V PA LATERAL EXAM: XR CHEST 2V PA LATERAL CLINICAL HISTORY: SOB w exertion TECHNIQUE: 2D digital imaging was performed. Two views. COMPARISON: CT CT CHEST PE CTA from 01/15/2024 CR XR PORTABLE CHEST AP from 01/17/2025 FINDINGS: HEART: Normal size. Aorta: Not dilated. PULMONARY VASCULATURE: Normal. MEDIASTINUM: Unremarkable. LUNGS: Clear. PLEURAL SPACE: No pleural effusion or pneumothorax. BONE:Unremarkable for age. SOFT TISSUES: A stimulator device battery pack is again noted along the lateral left chest wall with the lead lead extending anterior to the sternum. IMPRESSION: No acute abnormality. Radiologic Study #2: Radiologist's impression: Exam(s) CT ABDOMEN PELVIS W EXAM: CT ABDOMEN PELVIS W CLINICAL HISTORY: RLQ pain, recent tx with abx for early appy. TECHNIQUE: Imaging Protocol: Axial computed tomography images with coronal and sagittal reformatted images were created and reviewed CONTRAST MATERIAL: Intravenous: Omnipaque 350 Contrast volume:100 ml Oral: no COMPARISON: CT CT CHEST PE CTA from 01/15/2024 FINDINGS: ABDOMEN and PELVIS: Lung Bases: No acute findings. Liver: Normal density. No suspicious mass. Gallbladder and biliary tract: No radiodense calculus. No wall thickening or pericholecystic fluid. No biliary dilation. Pancreas: Normal density. No abnormal calcifications or inflammatory process. No evidence of mass. Spleen: Normal. Kidneys: Normal size, contour and axis. No radiodense stones. No obstructive uropathy. No suspicious masses seen. Adrenal glands: No masses seen. Vasculature: Abdominal aorta non-dilated. Soft tissues: Battery pack device at the left lateral chest wall. Bladder: No gross wall thickening. No calculi.No focal mass. Bowel: No obstruction. No bowel wall thickening. Appendix is normal, nondilated and containing air. Normal quantity of stool.. Peritoneal cavity: No ascites. No focal collection. No mesenteric inflammatory response. No free air. Bones: Unremarkable for age. Reproductive organs: Unremarkable. IUD in place. Lymph nodes: No pathologically enlarged lymph nodes. IMPRESSION:: No acute abnormality in the abdomen or pelvis. The appendix appears normal. Quality:SDOH Health Related Social Needs: No Data to Display PFSH All Active Problems (Updated 02/18/25 @ 20:58 by Christina Lynn) Abdominal pain (Acute) (Acute) in 3rd trimester Pruritus (Acute) Acanthosis nigricans (Acute) Allergic rhinitis, cause unspecified (Acute 01/12/13) Mild intermittent asthma, uncomplicated (Acute 03/06/16) Migraine headache (Acute 03/06/16) Well adolescent visit (Acute 03/12/17) Medical History (Updated 02/18/25 @ 20:58 by Christina Lynn) Chronic nonintractable headache (09/05/12) Generalized abdominal pain (11/17/12) Headache (09/05/12) Routine child health exam (01/28/12) Asthma Allergic rhinitis severe- environmental Surgical History S/P right knee arthroscopy [facility] [place] removed scar tissue, 'fluid sac Tonsillectomy and adenoidectomy age 6 Family History Mother Urticaria Environmental allergies Asthma Father Urticaria Alcohol abuse Essential hypertension Bipolar disorder with borderline personality disorder Mental disorder depression/anxiety Other Urticaria paternal aunts/uncles, PGF Alcohol abuse paternal aunts/uncles, PGF Personal history of malignant neoplasm PGF-melanoma Bipolar disorder MGM, PGM Heart disease PGM Mental disorder PGM- anxiety/depression Social History Smoking/Tobacco Use Status: Never Smoking risk assessment performed?: Yes Alcohol Intake: never Drug use: Never Substance use type: does not use Household members: family Housing: house Pets and animals: Yes Pets and animals: cat(s) Do you feel safe at home: Yes Do you feel safe in your relationship?: Yes
--- NOTE | 2025-02-18 16:15 | RT.EKG_ITS ---
APPROVED REPORT Exam: Resting ECG Reason for Exam: SOB/chest heaviness Patient Location: E HR:85 bpm ECG Measurements Heart Rate 85 AXIS OH 160 P -11 QRSd 105 QRS 2 QT 388 T -10 QTc 462 Conclusion Sinus rhythm, rate 85 No interval abnormalities No STEMI No significant changes from priors
[2025-02-18 16:43] LABS: Abs Immature Grans 0.04 10^3/uL (0.0-0.06); Absolute Basophil Count 0.09 10^3/uL (0.0-0.2); Absolute Eosinophil Count 0.15 10^3/uL (0.0-0.7); Absolute Monocyte Count 0.87 10^3/uL (0.1-0.8); Absolute Neutrophil Count 6.89 10^3/uL (1.2-6.7); Basophils % 0.8 %; Eosinophils % 1.3 %; HGB 16.4 g/dL (11.2-15.7); Immature Grans % 0.3 %; Lymphocytes % 31.5 %; MCH 29.7 pg (27.0-33.0); MCHC 33.5 % (32.0-36.0); MCV 89 fL (80-95); Monocytes % 7.4 %; Neutrophils % 58.7 %; Platelet Count 419 10^3/uL (130-400); RBC 5.53 10^6/uL (3.93-5.22); RDW 11.6 % (11.7-14.6); RDW-SD 37.4 fL; WBC 11.74 10^3/uL (4.4-10.8)
[2025-02-18] MEDS: Ondansetron 4 MG/2 ML VIAL IVP (16:46)
[2025-02-18 17:02] LABS: ALT 37 U/L (14-59); AST 17 U/L (15-37); Albumin 4.2 g/dL (3.4-5.0); Alkaline Phosphatase 82 U/L (46-116); Anion Gap 8.5 mmol/L (3-11); BUN 11 mg/dL (7-18); Bilirubin, Total 0.5 mg/dL (0.2-1.0); CO2 27.5 mmol/L (21.0-32.0); CREATININE 0.9 mg/dL (0.55-1.02); Calcium 9.5 mg/dL (8.5-10.1); Chloride 100 mmol/L (98-107); Estimated GFR 92.12 (mL/min/1.73m2); Glucose 87 mg/dL (74-106); Magnesium 2.1 mg/dL (1.8-2.4); NT-proBNP 21 pg/mL (<300); Potassium 3.9 mmol/L (3.5-5.1); Sodium 136 mmol/L (136-145); Total Protein 8.4 g/dL (6.4-8.2)
[2025-02-18 17:07] LABS: D-Dimer 402 ng/mlFEU (<500)
--- NOTE | 2025-02-18 17:15 | DI.RAD_ITS ---
Exam(s) XR CHEST 2V PA LATERAL EXAM: XR CHEST 2V PA LATERAL CLINICAL HISTORY: SOB w exertion TECHNIQUE: 2D digital imaging was performed. Two views. COMPARISON: CT CT CHEST PE CTA from 01/15/2024 CR XR PORTABLE CHEST AP from 01/17/2025 FINDINGS: HEART: Normal size. Aorta: Not dilated. PULMONARY VASCULATURE: Normal. MEDIASTINUM: Unremarkable. LUNGS: Clear. PLEURAL SPACE: No pleural effusion or pneumothorax. BONE:Unremarkable for age. SOFT TISSUES: A stimulator device battery pack is again noted along the lateral left chest wall with the lead lead extending anterior to the sternum. IMPRESSION: No acute abnormality. DATA REPOSITORY: RADIATION DOSE DELIVERED:
--- NOTE | 2025-02-18 17:15 | DI.CT_ITS ---
Exam(s) CT ABDOMEN PELVIS W EXAM: CT ABDOMEN PELVIS W CLINICAL HISTORY: RLQ pain, recent tx with abx for early appy. TECHNIQUE: Imaging Protocol: Axial computed tomography images with coronal and sagittal reformatted images were created and reviewed CONTRAST MATERIAL: Intravenous: Omnipaque 350 Contrast volume:100 ml Oral: no COMPARISON: CT CT CHEST PE CTA from 01/15/2024 FINDINGS: ABDOMEN and PELVIS: Lung Bases: No acute findings. Liver: Normal density. No suspicious mass. Gallbladder and biliary tract: No radiodense calculus. No wall thickening or pericholecystic fluid. No biliary dilation. Pancreas: Normal density. No abnormal calcifications or inflammatory process. No evidence of mass. Spleen: Normal. Kidneys: Normal size, contour and axis. No radiodense stones. No obstructive uropathy. No suspicious masses seen. Adrenal glands: No masses seen. Vasculature: Abdominal aorta non-dilated. Soft tissues: Battery pack device at the left lateral chest wall. Bladder: No gross wall thickening. No calculi.No focal mass. Bowel: No obstruction. No bowel wall thickening. Appendix is normal, nondilated and containing air. Normal quantity of stool.. Peritoneal cavity: No ascites. No focal collection. No mesenteric inflammatory response. No free air . Bones: Unremarkable for age. Reproductive organs: Unremarkable. IUD in place. Lymph nodes: No pathologically enlarged lymph nodes. IMPRESSION:: No acute abnormality in the abdomen or pelvis. The appendix appears normal. RADIATION DOSE DELIVERED: Total DLP DATA REPOSITORY: All CT scans at this facility are submitted to the National Radiology Data Registry (NRDR) Dose Index Registry (DIR) with the [employer] (A[employer]). RADIATION OPTIMIZATION: All CT scans at this facility use at least one of these dose optimization te chniques: automated exposure control; mA and/or kV adjustment per patient size (includes targeted exa ms where dose is matched to clinical indication); or iterative reconstruction.
[2025-02-18] MEDS: Normal Saline - Diluent 50 ML VIAL IJ (18:26)
[2025-02-18] MEDS: Omnipaque 350 MG/ML 100 ML BTL IJ (18:27)
[2025-02-18] MEDS: Normal Saline 1,000 ML 1000 ML IV (18:49)
[2025-02-18 18:58] LABS: Bilirubin Negative (Negative); Blood Trace-intact (Negative); Clarity Clear (Clear); Glucose 500 mg/dL (Negative); Ketones Negative (Negative); Leukocyte Esterase Negative (Negative); Nitrite Negative (Negative); Urobilinogen 0.2 mg/dL (Up to 0.2)
[2025-02-18 19:08] LABS: Bacteria Few HPF (Negative); C & S Indicated? No; Crystals Negative HPF (Negative); Epithelial Cells Few HPF (Negative); Mucus Negative (Negative); RBC 0-2 HPF (0-2); WBC 0-2 HPF (0-5)
== END 2025-02-18 21:11 | disposition home or self-care (01) ==
PROVIDERS: Emergency Provider Nurse Practitioner Family; PCP Family Medicine
DX: Z79.84 Long term (current) use of oral hypoglycemic drugs; R10.31 Right lower quadrant pain; R11.0 Nausea
CPT/HCPCS: 36415; 80053; 81025; 93005; 96361; 96374; 96375; 99285; 71046; 74177; 81003; 81015; 83735; 83880; 85025; 85379; 93010; J2405; J3490

== ENCOUNTER 2025-04-30 11:00 | Outpatient (RCR) | payer MEDICAID, SELFPAY ==
--- NOTE | 2025-04-30 11:00 | RT.EKG_ITS ---
APPROVED REPORT Exam: Resting ECG Reason for Exam: cardiac rehab intake Patient Location: O HR:89 bpm ECG Measurements Heart Rate 89 AXIS DE 139 P 6 QRSd 73 QRS 36 QT 336 T 5 QTc 409 Conclusion Sinus rhythm...normal P axis, V-rate 50- 99 Normal Electrocardiogram
== END 2025-05-03 23:59 | disposition home or self-care (01) ==
LOC: CR 11:00
PROVIDERS: PCP Family Medicine; Visit Provider Internal Medicine Cardiovascular Disease
DX: I50.20 Unspecified systolic (congestive) heart failure (principal); Z51.89 Encounter for other specified aftercare
CPT/HCPCS: S9472

== ENCOUNTER 2025-06-02 13:00 | Outpatient (RCR) | payer OTHER, MEDICAID, SELFPAY ==
--- NOTE | 2025-05-21 13:15 | RT.EKG_ITS ---
APPROVED REPORT Exam: Resting ECG Reason for Exam: CR Patient - Baseline EKG Patient Location: O HR:100 bpm ECG Measurements Heart Rate 100 AXIS WI 142 P 3 QRSd 93 QRS 25 QT 347 T -7 QTc 448 Conclusion Sinus tachycardia...rate> 99 Otherwise normal ECG
== END 2025-06-03 23:59 | disposition home or self-care (01) ==
LOC: CR 13:00
PROVIDERS: PCP Family Medicine; Visit Provider Internal Medicine Cardiovascular Disease
DX: I50.20 Unspecified systolic (congestive) heart failure (principal); Z51.89 Encounter for other specified aftercare
CPT/HCPCS: S9472

== ENCOUNTER 2025-06-24 18:40 | Emergency (ER) | payer OTHER, MEDICAID, SELFPAY ==
[2025-06-24 18:47] VITALS: BP 114/77; PULSE 95; RESP 15; TEMP 36.7; O2SAT 99
--- NOTE | 2025-06-24 20:30 | DI.RAD_ITS ---
Exam(s) XR FOOT RT COMPLETE EXAM: XR FOOT RT COMPLETE CLINICAL HISTORY: Injury 2 days ago. TECHNIQUE: 2D digital imaging was performed. COMPARISON: No exams were available for comparison FINDINGS: 3 views No evidence of acute fracture or diastasis of the Lisfranc joint. There is soft tissue swelling over the distal of the foot. No metatarsal fractures evident. Articulations appear unremarkable. No degenerative changes. No radiopaque foreign bodies. No inferior calcaneal spur. No pes planus. On the lateral view there is a thin linear density in the inferior aspect of the calcaneus. This does not have the appearance of a typical fracture but correlation with site of tenderness is recommended. IMPRESSION: No obvious fractures evident. Finding in the calcaneus as above. Correlation with site of tenderness is recommended. DATA REPOSITORY: RADIATION DOSE DELIVERED:
--- NOTE | 2025-06-24 20:39 | W.ED.GENAD ---
Discharge Plan Disposition Patient Disposition: Home Condition: Stable Discharge Details Clinical Impression: Crush injury of right foot, Crush accident Primary Care Provider: Chen Chapa ED Provider: Catia Haynes Home Meds and New Rx's Prescriptions: Continued sumatriptan succinate [Imitrex] 50 mg tablet 50 mg PO ONCE MDD 200mg Qty: 30 1RF Rx Instructions: May repeat after 2-4 hours as needed. 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 Rx Instructions: administer into each nostril albuterol sulfate [ProAir HFA] 8.5 GM HFA aerosol inhaler 2 puff Inhalation ONCE Qty: 1 1RF torsemide 20 mg tablet 60 mg PO BID metoprolol succinate 200 mg tablet extended release 24 hr 200 mg PO DAILY spironolactone 25 mg tablet 25 mg PO DAILY Jardiance 10 mg tablet 10 mg PO DAILY ondansetron 4 mg tablet,disintegrating 4 mg PO Q8H PRN (Reason: nausea and vomiting) Qty: 30 0RF sacubitril-valsartan [Entresto] 24-26 mg tablet 1 tab PO BID Discharge Instructions Instructions: Crush Injury, Walking Boot Additional Instructions: At this time there is a small linear density on your heel, no other evidence for fracture to your foot. Please continue with light duty, taking it easy for the next few days. Please continue taking Tylenol 1 to 2 tablets every 4-6 hours. Apply ice. Return to the ER be seen for any dizziness lightheadedness racing heart, vomiting blood, worsening pain not relieved by Tylenol or concerns. Please use the walking boot of the previously have been given at home. Did offer crutches at this time which were declined. Follow up with primary care provider in 3-5 days. Return to ED sooner if any worsening or concerns. Stand Alone Forms: Work Release Referrals: Chen Chapa [Primary Care Provider] - 1 week Referral Note: ER follow up Call for an appt Discharge Data Discharge Date/Time-TO BE ENTERED AT DEPARTURE: 06/24/25 22:53 HPI General Mode of arrival: ambulatory. Date/Time Provider Initiated Documentation: 06/24/25 18:53. Limitations to Documentation: no limitations. Information obtained by: RN notes reviewed and old records reviewed. HPI Narrative: 25 female presents to the ER chief complaint worsening lower back pain, right groin pain right foot pain after getting hit by a horse approximately 2 days ago. Patient was seen at offsite facility and had CT trauma exam which was reported to be negative. She does have a history of CHF and hypertension which she takes medications for. She is here complaining of right foot swelling and pain and worsening low back pain. She does have some road rash noted on her left anterior forearm which has a dressing in place no surrounding induration or signs of infection. Related Data Home Medications ?Medication ?Instructions ?Recorded ?Confirmed albuterol sulfate 90 mcg/actuation 2 puff inhalation ONCE ##1 06/16/18 06/24/25 aerosol inhaler (ProAir HFA) azelastine 137 mcg (0.1 %) nasal 1 spray intranasal BID PRN 08/25/20 06/24/25 spray sumatriptan succinate 50 mg tablet 50 mg PO ONCE #30 tabs 12/30/20 06/24/25 (Imitrex) empagliflozin 10 mg tablet 10 mg PO DAILY 06/11/23 06/24/25 (Jardiance) metoprolol succinate 200 mg 200 mg PO DAILY 06/11/23 06/24/25 tablet,extended release 24 hr spironolactone 25 mg tablet 25 mg PO DAILY 06/11/23 06/24/25 torsemide 20 mg tablet 60 mg PO BID 06/11/23 06/24/25 ondansetron 4 mg disintegrating 4 mg PO Q8H PRN nausea and 01/17/25 06/24/25 tablet vomiting #30 tabs sacubitril 24 mg-valsartan 26 mg 1 tab PO BID 06/24/25 06/24/25 tablet (Entresto) Previous Rx's ?Medication ?Instructions ?Recorded albuterol sulfate 90 mcg/actuation 2 puff inhalation ONCE ##1 06/16/18 aerosol inhaler (ProAir HFA) sumatriptan succinate 50 mg tablet 50 mg PO ONCE #30 tabs 12/30/20 (Imitrex) ondansetron 4 mg disintegrating 4 mg PO Q8H PRN nausea and 01/17/25 tablet vomiting #30 tabs Allergies Allergy/AdvReac Type Severity Reaction Status Date / Time Iodinated Contrast Media AdvReac Severe Nausea Verified 06/24/25 18:49 morphine AdvReac Severe Nausea Verified 06/24/25 18:49 codeine AdvReac Unknown vomiting Verified 06/24/25 18:49 SEASONAL ALLERGIES Allergy Intermediate Topical Uncoded 06/24/25 18:49 Irritation General Stated Complaint: Orthopedic FORTINO: 4 Review of Systems All systems reviewed & are unremarkable except as noted in HPI and below Constitutional Constitutional: Denies fever(s) Cardiovascular Cardiovascular: Denies chest pain and Denies dyspnea Respiratory Respiratory: Denies dyspnea Genitourinary Genitourinary: Reports flank pain Musculoskeletal Musculoskeletal: Reports as per HPI, Reports back pain and Reports stiffness Exam Narrative Exam Narrative: General: Well Developed, Awake and Alert, conversant. Patient has generalized body aches and soreness. Skin: Warm and Dry HEENT: Head: No palpable deformities, Normocephalic Eyes: Pupils PERRLA, EOM's intact. No periorbital eccymosis or step off Ears: Canal patent. Tympanic membranes are clear . No washington's sign, no hemptympanum. Nose/Face: Atraumatic. Facial bones nontender to palpation and stable with manipulation. Mouth/Throat: No intraoral trauma. Teeth and mandible are intact. Neck: No midline tenderness, no step off, no deformity to palpation of C-spine. Trachea midline. Chest: No surface trauma. Nontender without crepitus or deformity. Lungs clear to ausculatation bilaterally. Heart: RRR, no rubs, murmurs or gallop. Abdomen: Has ecchymosis noted to her lower abdomen or surface trauma. Nondistended. Nontender to palpation no guarding, rebound, or rigidity. Complaining of some right posterior flank pain she does have an abrasion and a contusion noted to that area. Pelvis: Nontender to palpation and stable to compression. Femoral pulses strong and equal Extremities: Has some road rash and superficial abrasion noted to her left anterior forearm, this is covered with the Xeroform gauze, no surrounding induration or purulent drainage, distal sensation and movement intact. Peripheral pulses intact and equal. Neuro: ANO x4, GCS 15, cranial nerves II through XII intact. Motor and sensory exam nonfocal. Reflexes are symmetric. Course Vital Signs Vital signs: Vital Signs Temperature 36.7 C 06/24/25 18:47 Pulse 95 H 06/24/25 18:47 Respiratory Rate 15 06/24/25 18:47 Blood Pressure 114/77 06/24/25 18:47 Pulse Oximetry 99 06/24/25 18:47 Temperature 36.7 C 06/24/25 18:47 Temperature Source Temporal Artery Scan 06/24/25 18:47 Pulse 95 H 06/24/25 18:47 Respiratory Rate 15 06/24/25 18:47 Respiratory Effort Normal, Non-Labored 06/24/25 20:09 Respiratory Depth Normal 06/24/25 20:09 Blood Pressure 114/77 06/24/25 18:47 Blood Pressure Position Sitting 06/24/25 18:47 Pulse Oximetry 99 06/24/25 18:47 Oxygen Delivery Method Room Air 06/24/25 20:09 Oxygen Flow Rate 0 06/24/25 20:09 Pain Level 10 06/24/25 19:13 Medical Decision Making 25 female presents to the ER chief complaint worsening lower back pain, right groin pain right foot pain after getting hit by a horse approximately 2 days ago. Patient was seen at offsite facility and had CT trauma exam which was reported to be negative. She does have a history of CHF and hypertension which she takes medications for. She is here complaining of right foot swelling and pain and worsening low back pain. She does have some road rash noted on her left anterior forearm which has a dressing in place no surrounding induration or signs of infection. I did offer lab work and CTs which patient declined at this time. Shared decision making and she would opt for just a bedside ultrasound and x-ray of her foot. Will perform a bedside ultrasound for my clinical impression to aid in further evaluation, and x-ray right foot. I did order a lidocaine patch as well. Bedside ultrasound POCUS obtained for a FAST exam, this was to aid in need for possible further images. No hypoechoic fluid seen in Morison's pouch, no pericardial effusion, bladder appears intact. Images discussed with Dr. Douglas ER attending he was able to view the images, he does agree with my assessment. Patient remained hemodynamically stable, nontachycardic throughout the remainder of her stay. Patient has a walking boot at home I did discuss the x-ray results of her she verbalized understanding. She declined crutches at this time I did recommend toe-touch to nonweightbearing status advance as tolerated. If we will have her follow-up with orthopedics if needed. Discussed return instructions to return for any worsening abdominal pain, dizziness lightheadedness, blood in her stool or vomiting blood or any concerns. Patient was discharged into the care of her family. This text was generated using [employer] system, please disregard any oddities of phrase or misspellings. Imaging Data Radiologic Study: Imaging: X-Ray Radiologist's impression: EXAM: XR FOOT RT COMPLETE CLINICAL HISTORY: Injury 2 days ago. TECHNIQUE: 2D digital imaging was performed. COMPARISON: No exams were available for comparison FINDINGS: 3 views No evidence of acute fracture or diastasis of the Lisfranc joint. There is soft tissue swelling over the distal of the foot. No metatarsal fractures evident. Articulations appear unremarkable. No degenerative changes. No radiopaque foreign bodies. No inferior calcaneal spur. No pes planus. On the lateral view there is a thin linear density in the inferior aspect of the calcaneus. This does not have the appearance of a typical fracture but correlation with site of tenderness is recommended. IMPRESSION: No obvious fractures evident. Finding in the calcaneus as above. Correlation with site of tenderness is recommended. PFSH All Active Problems (Updated 06/24/25 @ 22:45 by Catia Haynes NP) Crush accident (Acute) Crush injury of right foot (Acute) (Acute) in 3rd trimester Pruritus (Acute) Acanthosis nigricans (Acute) Allergic rhinitis, cause unspecified (Acute 01/12/13) Mild intermittent asthma, uncomplicated (Acute 03/06/16) Migraine headache (Acute 03/06/16) Well adolescent visit (Acute 03/12/17) Medical History (Updated 06/24/25 @ 22:45 by Catia Haynes NP) Chronic nonintractable headache (09/05/12) Generalized abdominal pain (11/17/12) Headache (09/05/12) Routine child health exam (01/28/12) Asthma Allergic rhinitis severe- environmental Surgical History S/P right knee arthroscopy [facility] [place] 11/22 removed scar tissue, 'fluid sac Tonsillectomy and adenoidectomy age 6 Family History Mother Urticaria Environmental allergies Asthma Father Urticaria Alcohol abuse Essential hypertension Bipolar disorder with borderline personality disorder Mental disorder depression/anxiety Other Urticaria paternal aunts/uncles, PGF Alcohol abuse paternal aunts/uncles, PGF Personal history of malignant neoplasm PGF-melanoma Bipolar disorder MGM, PGM Heart disease PGM Mental disorder PGM- anxiety/depression Social History Smoking/Tobacco Use Status: Never Smoking risk assessment performed?: Yes Alcohol Intake: never Drug use: Never Substance use type: does not use Household members: family Housing: house Pets and animals: Yes Pets and animals: cat(s) Do you feel safe at home: Yes Do you feel safe in your relationship?: Yes PAWSS Have you Been Recently Intoxicated or Drunk Within the Last 30 days?: No Have you Ever Experienced Previous Episodes of Alcohol Withdrawal?: No Have you ever Experienced Withdrawal Seizures?: No Have you ever Experienced Delirium Tremens(DT)s?: No Have you ever undergone Alcohol Rehabilitation Treatment (i.e, inpt ot outpatient treatment programs)?: No Have you ever Experienced Blackouts?: No Have you ever Combined Alcohol with other Downers within the last 90 days?: No Have you ever Combined Alcohol with any other Substance of Abuse during the last 90 days?: No Positive Blood Alcohol level on Presentation? [PCS.BAL]: No Evidence of Increased Autonomic Activity (i.e. HR>120, tremor, sweating, agitation, nausea)?: No Result: 0
[2025-06-24] MEDS: Lidocaine 5% Patch 1 PATCH TP (20:45)
[2025-06-24] MEDS: Ondansetron O.D.T. 4 MG TABEF (21:58)
--- NOTE | 2025-06-24 22:03 | DI.VRAD_ITS ---
PROCEDURE INFORMATION: Exam: XR Right Foot Exam date and time: 06/24/2025 21:30 Age: 25 years old Clinical indication: Injury or trauma; Other: Stepped by draught horse; Crushing; Foot; Right TECHNIQUE: Imaging protocol: Radiologic exam of the right foot. Views: 3 or more views. COMPARISON: No relevant prior studies available. FINDINGS: Bones/joints: No acute fracture or subluxation. Soft tissues: Mild swelling in the dorsal forefoot. IMPRESSION: No acute bony pathology. Dictated and Authenticated by: Rosy Watkins MD. Orderin Ivy Bardales MD
[2025-06-24 22:50] VITALS: BP 115/63; PULSE 90; RESP 16; TEMP 36.6; O2SAT 100
== END 2025-06-24 22:53 | disposition home or self-care (01) ==
PROVIDERS: Emergency Provider Registered Nurse Emergency; PCP Family Medicine
DX: W22.8XXA Striking against or struck by other objects, initial encounter; Y93.52 Activity, horseback riding; M54.50 Low back pain, unspecified; R10.2 Pelvic and perineal pain; M79.671 Pain in right foot
CPT/HCPCS: 99284 ×2; 73630

== ENCOUNTER 2025-06-30 13:00 | Outpatient (RCR) | payer OTHER, MEDICAID, SELFPAY | END 2025-07-04 23:59 | disposition home or self-care (01) | LOC: CR 13:00 | PROVIDERS: PCP Family Medicine; Visit Provider Internal Medicine Cardiovascular Disease | DX: I25.10 Atherosclerotic heart disease of native coronary artery without angina pectoris (principal); Z51.89 Encounter for other specified aftercare | CPT/HCPCS: S9472 ==

== ENCOUNTER 2025-07-30 13:00 | Outpatient (RCR) | payer OTHER, MEDICAID, SELFPAY ==
--- NOTE | 2025-07-09 13:15 | RT.EKG_ITS ---
APPROVED REPORT Exam: Resting ECG Reason for Exam: new T wave inversion Patient Location: O HR:88 bpm ECG Measurements Heart Rate 88 AXIS SD 172 P -5 QRSd 109 QRS 12 QT 380 T 10 QTc 460 Conclusion Sinus rhythm...normal P axis, IVCD Baseline wander in lead(s) V6
== END 2025-08-03 23:59 | disposition home or self-care (01) ==
LOC: CR 13:00
PROVIDERS: PCP Family Medicine; Visit Provider Internal Medicine Cardiovascular Disease
DX: I25.10 Atherosclerotic heart disease of native coronary artery without angina pectoris (principal); Z51.89 Encounter for other specified aftercare
CPT/HCPCS: S9472

== ENCOUNTER 2025-08-30 13:00 | Outpatient (RCR) | payer OTHER, MEDICAID, SELFPAY | END 2025-09-03 23:59 | disposition home or self-care (01) | LOC: CR 13:00 | PROVIDERS: PCP Family Medicine; Visit Provider Internal Medicine Cardiovascular Disease | DX: I25.10 Atherosclerotic heart disease of native coronary artery without angina pectoris (principal); Z51.89 Encounter for other specified aftercare | CPT/HCPCS: S9472 ==

== ENCOUNTER 2025-09-12 13:26 | Outpatient (REF) | payer OTHER, MEDICAID, SELFPAY | END 2025-09-12 13:27 | disposition home or self-care (01) | LOC: LBN 13:26 | PROVIDERS: PCP Family Medicine; Visit Provider Student in an Organized Health Care Education/Training Program | DX: R30.0 Dysuria (principal) | CPT/HCPCS: 87077; 87086; 87186 ==

== ENCOUNTER 2025-09-13 16:54 | Outpatient (REF) | payer OTHER, MEDICAID, SELFPAY | END 2025-09-13 16:55 | disposition home or self-care (01) | LOC: LBN 16:54 | PROVIDERS: PCP Family Medicine; Visit Provider Nurse Practitioner Women's Health | DX: R30.0 Dysuria (principal); B96.29 Other Escherichia coli [E. coli] as the cause of diseases classified elsewhere | CPT/HCPCS: 87086 ==